=== PATIENT | female | born 1980 | race American Indian/Alaskan Native ===

== ENCOUNTER 2018-07-10 19:16 | Emergency (ER) | payer SELFPAY ==
[2018-07-10 19:25] VITALS: BP 123/67
--- NOTE | 2018-07-10 20:10 | Emergency Department Report ---
Blank Doc - Documentation Documentation: 37 y.o. female presents to ED chest pain on right abdominal pain that is sharp and nonradiating. Pain worse with deep breaths. Hx lupus and asthma cc RUQ pain, chest pain, and dizziness Exam: RUQ tenderness PlaN: Labs, CT, US limited RUQ, & CXR Main side for eval
[2018-07-10 20:28] LABS: Hematocrit 37.5 % (30.3-42.9); Hemoglobin 11.7 gm/dl (10.1-14.3); Mean Corpuscular HGB Conc 31 % (30-34); Mean Corpuscular Volume 79 fl (79-97); Platelet Count 320 K/mm3 (140-440); Red Blood Count 4.77 M/mm3 (3.65-5.03); Red Cell Distribution Width 16.3 % (13.2-15.2)
[2018-07-10 20:44] LABS: Alanine Aminotransferase 17 units/L (7-56); BUN/Creatinine Ratio 21; Blood Urea Nitrogen 17 mg/dL (7-17); Calcium 8.9 mg/dL (8.4-10.2); Hemolysis Index 9
[2018-07-10 21:24] LABS: Bilirubin,Urine NEG (Negative); Blood,Urine NEG (Negative); Color,Urine Yellow (Yellow); Mucus,Urine FEW /HPF; Protein,Urine <15 mg/dL mg/dL (Negative); Urobilinogen,Urine < 2.0 mg/dL (<2.0)
[2018-07-10] MEDS ORDERED: TYLENOL PO ONE (21:25)
[2018-07-10] MEDS ORDERED: TYLENOL ONE (21:29)
--- NOTE | 2018-07-10 21:31 | Ultrasound Report ---
FINAL REPORT EXAM: US ABDOMEN LIMITED HISTORY: RUQ tenderness TECHNIQUE: Ultrasound abdomen PRIORS: None. FINDINGS: No focal abnormality identified in the visualized liver parenchyma No evidence for cholelithiasis or gallbladder wall thickening. Common bile duct is within normal limits 2.7 millimeters Right kidney is 10.2 x 4.5 x 5.0 centimeters. Cortical thickness 1.6 centimeters. No evidence for hyd ronephrosis. There is normal renal echogenicity Pancreas is incompletely seen visualized portions are unremarkable. IMPRESSION: Negative. No abnormality identified
[2018-07-10 21:32] LABS: HCG Qualitative,Urine Negative (Negative)
--- NOTE | 2018-07-10 22:11 | Emergency Department Report ---
ED Abdominal Pain HPI - General Chief Complaint: Chest Pain Stated Complaint: CHEST PAIN Time Seen by Provider: 07/10/18 20:01 Source: patient Mode of arrival: Ambulatory Limitations: No Limitations - History of Present Illness Initial Comments: Pt is a 37 y/o aaf with hx of asthma , pe, scoliosis, obesity and lupus who presents for ruq abd pain not chest pain as stated in triage note for past 2 days there is no sob no fever no chills no n/v ruq pain is exacerbated by deep breathing and palpation pt is tolerating po intake with out syptoms of n/v there is no back pain no dysuria frequency or urgency Onset/Timin -: days(s) Location: RUQ Radiation: RUQ Migration to: RUQ Severity: moderate Severity scale (0 -10): 3 Quality: aching Consistency: intermittent Improves With: nothing Worsens With: movement, other (deep breathing ) Associated Symptoms: denies: nausea, vomiting, diarrhea, fever, chills, constipation, dysuria, hematemesis, hematochezia, melena, hematuria, anorexia, syncope - Related Data LMP (females 10-50): 3 weeks Previous Rx's Medication Instructions Recorded Last Taken Type ALBUTEROL Inhaler(NF) [VENTOLIN 2 puff IH Q4H PRN #1 inha 07/11/18 Unknown Rx Inhaler(NF)] Naproxen 500 mg PO BID PRN #30 tablet 07/11/18 Unknown Rx Allergies Allergy/AdvReac Type Severity Reaction Status Date / Time scallops Allergy Swelling Verified 07/10/18 20:07 ED Review of Systems ROS: Stated complaint: CHEST PAIN Other details as noted in HPI Constitutional: denies: chills, fever Eyes: denies: eye pain, eye discharge, vision change ENT: denies: ear pain, throat pain Respiratory: denies: cough, shortness of breath, wheezing Cardiovascular: denies: chest pain, palpitations Endocrine: no symptoms reported Gastrointestinal: abdominal pain (RUQ ). denies: nausea, vomiting, diarrhea, constipation, hematemesis, melena, hematochezia Genitourinary: denies: urgency, dysuria, frequency, hematuria, discharge, abnormal menses, dyspareunia Musculoskeletal: denies: back pain, joint swelling, arthralgia Skin: denies: rash, lesions Neurological: denies: headache, weakness, paresthesias Psychiatric: denies: anxiety, depression Hematological/Lymphatic: denies: easy bleeding, easy bruising ED Past Medical Hx - Past Medical History Previous Medical History?: Yes Hx Pulmonary Embolism: Yes Hx Asthma: Yes Additional medical history: scolisis. lupus - Surgical History Past Surgical History?: Yes Additional Surgical History: - Social History Smoking Status: Never Smoker Substance Use Type: None - Medications Home Medications: Home Medications Medication Instructions Recorded Confirmed Last Taken Type ALBUTEROL Inhaler(NF) [VENTOLIN 2 puff IH Q4H PRN #1 inha 07/11/18 Unknown Rx Inhaler(NF)] Naproxen 500 mg PO BID PRN #30 tablet 07/11/18 Unknown Rx ED Physical Exam - General Limitations: No Limitations General appearance: alert, in no apparent distress - Head Head exam: Present: atraumatic, normocephalic - Eye Eye exam: Present: normal appearance, PERRL, EOMI - ENT ENT exam: Present: normal exam, mucous membranes moist - Neck Neck exam: Present: normal inspection, full ROM. Absent: tenderness, lymphadenopathy, thyromegaly - Respiratory Respiratory exam: Present: normal lung sounds bilaterally. Absent: respiratory distress, wheezes, rales, rhonchi, stridor, chest wall tenderness, prolonged expiratory - Cardiovascular Cardiovascular Exam: Present: regular rate, normal rhythm, normal heart sounds. Absent: systolic murmur, diastolic murmur, rubs, gallop - GI/Abdominal GI/Abdominal exam: Present: soft, tenderness (RUQ ), normal bowel sounds. Absent: guarding, rebound, rigid, bruit, hernia - Rectal Rectal exam: Present: deferred - Extremities Exam Extremities exam: Present: normal inspection, full ROM, normal capillary refill. Absent: tenderness, pedal edema, joint swelling, calf tenderness - Back Exam Back exam: Present: normal inspection, full ROM. Absent: tenderness, CVA tenderness (R), CVA tenderness (L), muscle spasm, paraspinal tenderness, rash noted - Neurological Exam Neurological exam: Present: alert, oriented X3, CN II-XII intact, normal gait - Psychiatric Psychiatric exam: Present: normal affect, normal mood - Skin Skin exam: Present: warm, dry, intact, normal color. Absent: rash ED Course Vital Signs 07/10/18 07/10/18 19:22 20:00 Temperature 97.9 F 97.9 F Pulse Rate 101 H 97 H Respiratory 16 20 Rate Blood Pressure 123/67 123/67 O2 Sat by Pulse 97 100 Oximetry ED Medical Decision Making - Lab Data Result diagrams: 07/10/18 20:13 07/10/18 20:13 Labs 07/10/18 07/10/18 07/10/18 20:13 20:13 20:50 WBC 7.6 RBC 4.77 Hgb 11.7 Hct 37.5 MCV 79 MCH 25 L MCHC 31 RDW 16.3 H Plt Count 320 Seg Neutrophils % Information Technology Coordinator Sodium 142 Potassium 4.1 Chloride 104.2 Carbon Dioxide 26 Anion Gap 16 BUN 17 Creatinine 0.8 Estimated GFR > 60 BUN/Creatinine Ratio 21 Glucose 117 H Calcium 8.9 Total Bilirubin 0.20 AST 17 ALT 17 Alkaline Phosphatase 129 Total Protein 6.4 Albumin 4.0 Albumin/Globulin Ratio 1.7 Urine Color Yellow Urine Turbidity Clear Urine pH 5.0 Ur Specific [place] 1.026 Urine Protein <15 mg/dl Urine Glucose (UA) Neg Urine Ketones Neg Urine Blood Neg Urine Nitrite Neg Urine Bilirubin Neg Urine Urobilinogen < 2.0 Ur Leukocyte Esterase Neg Urine WBC (Auto) 2.0 Urine RBC (Auto) 3.0 U Epithel Cells (Auto) 2.0 Urine Mucus Few Urine HCG, Qual Negative - EKG Data EKG shows normal: sinus rhythm Rate: normal - EKG Data When compared to previous EKG there are: previous EKG unavailable Interpretation: normal EKG (ekg interp by ed attending ) - Radiology Data Radiology results: report reviewed, image reviewed FINAL REPORT EXAM: US ABDOMEN LIMITED HISTORY: RUQ tenderness TECHNIQUE: Ultrasound abdomen PRIORS: None. FINDINGS: No focal abnormality identified in the visualized liver parenchyma No evidence for cholelithiasis or gallbladder wall thickening. Common bile duct is within normal limits 2.7 millimeters Right kidney is 10.2 x 4.5 x 5.0 centimeters. Cortical thickness 1.6 centimeters. No evidence for hydronephrosis. There is normal renal echogenicity Pancreas is incompletely seen visualized portions are unremarkable. IMPRESSION: Negative. No abnormality identified Transcribed By: JOHAN Dictated By: SANGEETHA GONZALEZ MD Electronically Authenticated By: SANGEETHA GONZALEZ MD Signed Date/Time: 07/10/182130 DD/ 29 TD/TT: 07/10/182129 FINAL REPORT EXAM: XR CHEST ROUTINE 2V HISTORY: chest pain TECHNIQUE: Two view chest PA and lateral PRIORS: None. FINDINGS: Cardiac and mediastinal contours are unremarkable. No focal pulmonary infiltrate is identified. No pleural fluid collection seen. Pulmonary vasculature is unremarkable. IMPRESSION: Negative two-view chest Transcribed By: JOHAN Dictated By: SANGEETHA GONZALEZ MD Electronically Authenticated By: SANGEETHA GONZALEZ MD Signed Date/Time: 07/10/182224 DD/ 22 TD/TT: 07/10/182222 - Medical Decision Making Chest x-ray no opacities no infiltrate RIGHT UPPER QUADRANTRENAL STONES stone CBC normal CMP normal UA Treated for Flank NSAIDs When Necessary patient will follow with PCP in 2-3 days given referral to [facility] for PCP affiliation no shortness of breath no wheezing no symptoms of bronchitis at this time EKG is normal. Critical care attestation.: If time is entered above; I have spent that time in minutes in the direct care of this critically ill patient, excluding procedure time. ED Disposition Clinical Impression: Right upper quadrant abdominal pain Disposition: -01 TO HOME OR SELFCARE Is pt being admited?: No Does the pt Need Aspirin: No Condition: Stable Instructions: Abdominal Pain (ED) Prescriptions: ALBUTEROL Inhaler(NF) [VENTOLIN Inhaler(NF)] 2 puff IH Q4H PRN #1 inha PRN Reason: shortness of breath wheezing Naproxen 500 mg PO BID PRN #30 tablet PRN Reason: pain Referrals: [facility] [Outside] - 3-5 Days Forms: Work/School Release Form(ED) Time of Disposition: 00:09
[2018-07-10] MEDS ORDERED: ULTRAM PO ONE (22:15)
[2018-07-10 22:23] LABS: Basophils % (Manual) 0 % (0.0-1.8); Total Cells Counted 100
--- NOTE | 2018-07-10 22:25 | XRay Report ---
FINAL REPORT EXAM: XR CHEST ROUTINE 2V HISTORY: chest pain TECHNIQUE: Two view chest PA and lateral PRIORS: None. FINDINGS: Cardiac and mediastinal contours are unremarkable. No focal pulmonary infiltrate is identified. No pleural fluid collection seen. Pulmonary vasculature is unremarkable. IMPRESSION: Negative two-view chest
[2018-07-10 22:27] LABS: Platelet Estimate Consistent w Auto; Tear Drop Cells Few
== END 2018-07-11 00:50 | disposition home or self-care (01) ==
LOC: ED 19:16
DX: R10.11 Right upper quadrant pain (principal); R07.89 Other chest pain; J45.909 Unspecified asthma, uncomplicated; M32.9 Systemic lupus erythematosus, unspecified; E66.9 Obesity, unspecified; Z68.41 Body mass index [BMI] 40.0-44.9, adult; Z86.711 Personal history of pulmonary embolism; Z88.8 Allergy status to other drugs, medicaments and biological substances
CPT/HCPCS: 36415; 71046; 76705; 80053; 81001; 81025; 83690; 85007; 85025; 93005; 93010; 99284